=== PATIENT | male | born 1975 | race Two or more races ===

== ENCOUNTER 2016-10-07 12:11 | Inpatient (IN) | payer OTHER ==
[2016-10-07 12:38] VITALS: BMI 23.6
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
[2016-10-07] MEDS ORDERED: MAGNESIUM HYDROX 2400MG/30ML ORAL SUSPENSION 30 ML CUP PO PRN (15:45)
[2016-10-07] MEDS ORDERED: MAGNESIUM CITRATE 300 ML BOTTLE PO PRN (15:45)
[2016-10-07] MEDS ORDERED: MENTHOL/PHENOL 1 EACH UD MM PRN (15:45)
[2016-10-07] MEDS ORDERED: NICOTINE POLACRILEX 4 MG GUM BC PRN (15:45)
[2016-10-07] MEDS ORDERED: LOPERAMIDE HCL 2 MG CAPSULE PO PRN (15:45)
[2016-10-07] MEDS ORDERED: IBUPROFEN 400 MG TABLET (FP) PO PRN (15:45)
[2016-10-07] MEDS ORDERED: hydrOXYzine PAMOATE 50 MG CAPSULE (FP) PO PRN (15:45)
[2016-10-07] MEDS ORDERED: MAG HYDROX/AL HYDROX/SIMETH 30 ML UNIT-DOSE CUP PO PRN (15:45)
[2016-10-07] MEDS ORDERED: P-EPHED 60MG/TRIPROLIDI 2.5MG TABLET PO PRN (15:45)
[2016-10-07] MEDS ORDERED: ACETAMINOPHEN 325 MG TABLET (FP) PO PRN (15:45)
[2016-10-07] MEDS ORDERED: guaiFENesin/D-METHORPHAN HB 10 ML UNIT-DOSE CUPS PO PRN (15:45)
[2016-10-07] MEDS ORDERED: chlordiazePOXIDE HCL 25 MG CAPSULE PO ONE (15:55)
[2016-10-07] MEDS: chlordiazePOXIDE HCL 25 MG CAPSULE PO SCH ×2 (17:54→22:57)
[2016-10-07 20:19] LABS: URINE APPEARANCE TURBID; URINE BILIRUBIN NEGATIVE (NEGATIVE); URINE BLOOD NEGATIVE (NEGATIVE); URINE COLOR YELLOW; URINE GLUCOSE (UA) NEGATIVE (NEGATIVE); URINE KETONE TRACE (NEGATIVE); URINE LEUK ESTERASE NEGATIVE (NEGATIVE); URINE NITRITE NEGATIVE (NEGATIVE); URINE UROBILINOGEN 2.0 E.U/dl E.U./dl (0.2-1.0)
[2016-10-07 20:25] LABS: URINE PROTEIN 1+ (NEGATIVE)
[2016-10-07 20:40] LABS: URINE MUCUS MANY; URINE RBC 4 /hpf (0-3); URINE WBC 71 /hpf (3-5); YEAST RARE
[2016-10-07] MEDS: diphenhydrAMINE HCL 50 MG CAPSULE PO PRN (22:57)
[2016-10-07] MEDS: THIAMINE HCL 100 MG TABLET (FP) PO SCH (22:57)
[2016-10-07] MEDS: GABAPENTIN 100 MG CAPSULE (FP) PO SCH (22:57)
[2016-10-07] MEDS: levETIRAcetam 500 MG TABLET (FP) PO SCH (22:57)
[2016-10-08] MEDS: chlordiazePOXIDE HCL 25 MG CAPSULE PO SCH ×4 (05:44→23:06)
[2016-10-08] MEDS ORDERED: METHADONE HCL 10 MG TABLET PO ONE (08:58)
[2016-10-08] MEDS ORDERED: METHADONE 40 MG, METHADONE 30 MG PO ONE (09:15)
[2016-10-08] MEDS ORDERED: METHADONE HCL 10 MG TABLET ONE (09:46)
[2016-10-08] MEDS ORDERED: METHADONE HCL 40 MG DISPERSABLE TABLET ONE (09:46)
[2016-10-08] MEDS ORDERED: NICOTINE 21 MG/24 HOURS TOPICAL PATCH TD SCH (10:00)
[2016-10-08] MEDS ORDERED: PRENATAL VITAMINS W/ FOLIC ACID TABLET (FP) PO SCH (10:00)
--- NOTE | 2016-10-08 10:00 | PN ---
[facility] CIWA - CIWA Score Nausea/Vomitin Muscle Tremors: 3 Anxiety: 3 Agitation: 2 Paroxysmal Sweats: 1-Minimal Palms Moist Orientation: 0-Oriented Tacttile Disturbances: 1-Very Mild Itch/Numbness Auditory Disturbances: 1-Very Mild Visual Disturbances: 1-Very Mild Sensitivity Headache: 2-Mild CIWA-Ar Total Score: 17 BHS Progress Note (SOAP) Subjective: ALERT,IRRITABLE,ANXIOUS,INTERRUPTED SLEEP,TREMOR Objective: 10/08/16 10:00 Vital Signs Temperature 96.6 F L 10/08/16 06:00 Pulse Rate 76 10/08/16 06:00 Respiratory Rate 16 10/08/16 06:00 Blood Pressure 114/61 10/08/16 06:00 O2 Sat by Pulse Oximetry (%) EKG NSR WITH SINUS ARRHYTHMIA Laboratory Last Values Urine Color Yellow 10/07/16 20:01 Urine Appearance Turbid 10/07/16 20:01 Urine pH 5.0 (5.0-8.0) 10/07/16 20:01 Ur Specific [place] 1.030 (1.001-1.035) 10/07/16 20:01 Urine Protein 1+ (NEGATIVE) H 10/07/16 20:01 Urine Glucose (UA) Negative (NEGATIVE) 10/07/16 20:01 Urine Ketones Trace (NEGATIVE) H 10/07/16 20:01 Urine Blood Negative (NEGATIVE) 10/07/16 20:01 Urine Nitrite Negative (NEGATIVE) 10/07/16 20:01 Urine Bilirubin Negative (NEGATIVE) 10/07/16 20:01 Urine Urobilinogen 2.0 e.u/dl E.U./dl (0.2-1.0) 10/07/16 20:01 Ur Leukocyte Esterase Negative (NEGATIVE) 10/07/16 20:01 Urine RBC 4 /hpf (0-3) 10/07/16 20:01 Urine WBC 71 /hpf (3-5) 10/07/16 20:01 Urine Mucus Many 10/07/16 20:01 Urine Yeast Rare 10/07/16 20:01 LABS PENDING Assessment: 10/08/16 10:01 WITHDRAWAL SYMPTOM Plan: CONTINUE DETOX,REPEAT UA,URINE C/S,ENCOURAGE ORAL FLUID
[2016-10-08 10:23] LABS: MCH 29.2 pg (25.7-33.7); MCHC 32.8 g/dl (32.0-35.9); MEAN CELL VOLUME 89.1 fl (80-96); MEAN PLT VOLUME 10.1 fl (7.5-11.1); PLATELET COUNT 254 K/MM3 (134-434); RDW 14.1 % (11.9-15.9); WHITE BLOOD COUNT 6.7 K/mm3 (4.0-10.0)
[2016-10-08 10:29] LABS: ALBUMIN 4.2 g/dl (3.4-5.0); ANION GAP 9 (8-16); CALCIUM 9.6 mg/dL (8.5-10.1); CO2 32 mmol/L (21-32); GLUCOSE,RANDOM 117 mg/dL (74-106); SGOT/AST 39 U/L (15-37); SGPT/ALT 39 U/L (12-78)
[2016-10-08 10:32] LABS: ALK PHOS 86 U/L (45-117); BILIRUBIN,TOTAL 0.5 mg/dL (0.2-1.0); CREATININE 0.8 mg/dL (0.7-1.3); TOT PROT 8.2 g/dl (6.4-8.2)
[2016-10-08] MEDS: GABAPENTIN 100 MG CAPSULE (FP) PO SCH ×2 (10:42→23:06)
[2016-10-08] MEDS: levETIRAcetam 500 MG TABLET (FP) PO SCH ×2 (10:42→23:06)
[2016-10-08 14:53] LABS: HIV 1 & 2 AB NEGATIVE; HIV 1 AGp24 NEGATIVE
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
[2016-10-08] MEDS ORDERED: ZOLPIDEM TARTRATE 10 MG TABLET (PARK CARE ONLY) PO PRN (15:44)
[2016-10-08] MEDS: chlordiazePOXIDE HCL 25 MG CAPSULE PO PRN (15:49)
[2016-10-08] MEDS: THIAMINE HCL 100 MG TABLET (FP) PO SCH (23:06)
[2016-10-09] MEDS: diphenhydrAMINE HCL 50 MG CAPSULE PO PRN (01:23)
[2016-10-09] MEDS: chlordiazePOXIDE HCL 25 MG CAPSULE PO PRN (01:23)
[2016-10-09] MEDS ORDERED: METHADONE HCL 40 MG DISPERSABLE TABLET ONE (05:11)
[2016-10-09] MEDS ORDERED: METHADONE HCL 10 MG TABLET ONE (05:11)
[2016-10-09] MEDS: chlordiazePOXIDE HCL 25 MG CAPSULE PO SCH (05:40)
[2016-10-09] MEDS ORDERED: METHADONE HCL 10 MG TABLET PO SCH (06:00)
[2016-10-09] MEDS ORDERED: METHADONE 40 MG, METHADONE 30 MG PO SCH (06:00)
[2016-10-09 06:41] VITALS: BP 107/56; PULSE 84; TEMP 96.3
--- NOTE | 2016-10-09 09:14 | PN ---
[facility] Progress Note Note: PATIENT IS DISRUPTIVE TO THE UNIT,MISBEHAVE,SECURITIES CALLED TO THE UNIT, ADMINISTRATIVE DISCHARGE,ESCORTED OFF UNIT BY SECURITIES,FOLLOW UP WITH [facility] AND PMD FOR MEDICAL PROBLEM
--- NOTE | 2016-10-09 09:22 | DS ---
[facility] Detox Discharge Summary Admission Date: 10/07/16 Discharge Date: 10/09/16 - History Present History: Alcohol Dependence, Cocaine Dependence, MMTP Additional Comments: PATIENT MISBEHAVE,DISRUPTIVE THE UNIT,SECURTIES CALLED TO UNIT,ADMINISTRATIVE DISCHARGE,ESCORTED OFF THE UNIT BY SECURITIES,FOLLOW UP WITH [facility] AND PMD FOR MEDICAL PROBLEM, ESCORTED OFF UNIT BY SECURITIES Pertinent Past History: GERD SEIZURE MMTP HEPATITIS C - Physical Exam Results Vital Signs: Vital Signs Temperature 96.3 F L 10/09/16 06:41 Pulse Rate 84 10/09/16 06:41 Respiratory Rate 18 10/09/16 06:41 Blood Pressure 107/56 10/09/16 06:41 O2 Sat by Pulse Oximetry (%) Pertinent Admission Physical Exam Findings: WITHDRAWAL SYMPTOM - Medication Discharge Medications: Ambulatory Orders Gabapentin [Neurontin -] 200 mg PO BID 10/07/16 Levetiracetam [Keppra -] 500 mg PO BID 10/07/16 - Diagnosis (1) Opioid dependence on agonist therapy Current Visit: Yes Status: Acute (2) Alcohol dependence with uncomplicated withdrawal Current Visit: Yes Status: Chronic (3) Cocaine dependence Current Visit: Yes Status: Chronic Qualifiers: Substance use status: uncomplicated Qualified Code(s): F14.20 - Cocaine dependence, uncomplicated (4) Epilepsy Current Visit: Yes Status: Chronic Qualifiers: Epilepsy type: unspecified (5) GERD (gastroesophageal reflux disease) Current Visit: Yes Status: Chronic Qualifiers: Esophagitis presence: without esophagitis Qualified Code(s): K21.9 - Gastro-esophageal reflux disease without esophagitis (6) Hepatitis C Current Visit: Yes Status: Chronic Qualifiers: Viral hepatitis chronicity: chronic - AMA Did Patient Leave Against Medical Advice: No
[2016-10-09] MEDS ORDERED: chlordiazePOXIDE 5 MG CAPSULE PO SCH (17:00)
[2016-10-10] MEDS ORDERED: chlordiazePOXIDE HCL 10 MG CAPSULE PO SCH (17:00)
--- NOTE | 2016-10-12 17:02 | EKG ---
Test Reason : Blood Pressure : / mmHG Vent. Rate : 067 BPM Atrial Rate : 067 BPM P-R Int : 154 ms QRS Dur : 086 ms QT Int : 428 ms P-R-T Axes : 065 078 047 degrees QTc Int : 452 ms NORMAL SINUS RHYTHM WITH SINUS ARRHYTHMIA NORMAL ECG NO PREVIOUS ECGS AVAILABLE Confirmed by DORINDA MORAN MD ([id number]) on 10/12/2016 5:01:37 PM Referred By: Confirmed By:DORINDA MORNA MD
== END 2016-10-09 09:00 | disposition home or self-care (01) | DRG 773 ==
LOC: YASAS 12:11 → Y6N 15:03
PROVIDERS: ADMIT Internal Medicine Addiction Medicine; ATTEND Internal Medicine Addiction Medicine
PROC: HZ2ZZZZ Detoxification Services for Substance Abuse Treatment (ICD-10-PCS; principal; 2016-10-09)
DX: F11.23 Opioid dependence with withdrawal (principal); F10.230 Alcohol dependence with withdrawal, uncomplicated; F14.20 Cocaine dependence, uncomplicated; F17.210 Nicotine dependence, cigarettes, uncomplicated; F19.24 Other psychoactive substance dependence with psychoactive substance-induced mood disorder; G40.909 Epilepsy, unspecified, not intractable, without status epilepticus; K21.9 Gastro-esophageal reflux disease without esophagitis; B18.2 Chronic viral hepatitis C; F91.8 Other conduct disorders
CPT/HCPCS: 36415; 80053; 81003; 81015; 85027; 86593; 87389; 93005; 93010